=== PATIENT | male | born 1980 | race Caucasian/White ===

== ENCOUNTER 2018-05-29 17:42 | Emergency (ER) | payer MEDICAID ==
[~2018-05-29] VITALS: Ht 177.8 cm; Wt 95.5 kg
[2018-05-29 17:48] VITALS: Ht 177.8 cm; Wt 95.5 kg
[2018-05-29 18:23] LABS: BASOPHILS 0.1 % (0-2); EOSINOPHILS 0.1 % (0-7); HEMATOCRIT 48.2 % (42.0-54.0); HEMOGLOBIN 17.7 g/dL (13.5-17.5); IMMATURE GRANULOCYTES 0.4 % (0-5); LYMPHOCYTES 10.8 % (15-50); MCH 30.8 pg (26.0-34.0); MCHC 36.7 g/dL (31.0-37.0); MCV 83.8 fL (80.0-100.0); MEAN PLATELET VOLUME 10.2 fL (7.4-10.4); MONOCYTES 5.3 % (2-11); NEUTROPHILS 83.3 % (40-80); PLATELET COUNT 234 10x3/uL (130-400); RBC 5.75 10x6/uL (4.20-6.10); RDW 14.4 % (11.5-14.5); WBC 12.8 10x3/uL (4.8-10.8)
[2018-05-29 18:45] LABS: ALBUMIN 4.2 g/dL (3.4-5.0); ALKALINE PHOSPHATASE 91 U/L (46-116); ALT (SGPT) 86 U/L (10-68); BILIRUBIN - TOTAL 0.76 mg/dL (0.2-1.3); CALC OSMOLALITY 283 mosm/kg (275-300); CALCIUM 8.5 mg/dL (8.5-10.1); CARBON DIOXIDE 26.9 mmol/L (21.0-32.0); CHLORIDE - SERUM 101 mmol/L (98-107); CREATININE - SERUM 1.1 mg/dL (0.6-1.3); GLUCOSE 137 mg/dL (74-106); POTASSIUM - SERUM 3.3 mmol/L (3.5-5.1); PROTEIN - SERUM 8.6 g/dL (6.4-8.2); SODIUM 141 mmol/L (136-145); UREA NITROGEN 16 mg/dL (7-18); eGFR NON AFRICAN AMERICAN 81 mL/min (90-120)
[2018-05-29 20:06] LABS: AMYLASE - SERUM 42 U/L (25-115); LIPASE 120 U/L (73-393)
[2018-05-29 21:53] LABS: APPEARANCE CLEAR (CLEAR); BILIRUBIN NEGATIVE (NEGATIVE); COLOR YELLOW (YELLOW); GLUCOSE NEGATIVE (NEGATIVE); KETONE NEGATIVE (NEGATIVE); NITRITE NEGATIVE (NEGATIVE); PROTEIN TRACE mg/dL (NEGATIVE); SPECIFIC GRAVITY 1.025 (1.005-1.020); UROBILINOGEN NORMAL (NORMAL)
[2018-05-29] MEDS ORDERED: ZOFRAN4 MG PO (22:01)
[2018-05-29 22:20] VITALS: BP 123/87
== END 2018-05-29 22:20 | disposition home or self-care (01) ==
LOC: D.ER 17:42
PROVIDERS: Family Medicine
DX: R11.10 Vomiting, unspecified (principal); E87.6 Hypokalemia; R19.7 Diarrhea, unspecified

== ENCOUNTER 2018-06-24 07:25 | Emergency (ER) | payer MEDICAID ==
[~2018-06-24] VITALS: Ht 177.8 cm; Wt 104.5 kg
[~2018-06-24 07:25] MED LIST: ZOFRAN4 MG PO
[2018-06-24 07:31] VITALS: Ht 177.8 cm; Wt 104.5 kg
[2018-06-24] MEDS ORDERED: LISINOPRIL5 MG PO (07:32)
[2018-06-24 07:59] LABS: BASOPHILS 0.6 % (0-2); EOSINOPHILS 2.7 % (0-7); HEMATOCRIT 43.5 % (42.0-54.0); HEMOGLOBIN 16.1 g/dL (13.5-17.5); IMMATURE GRANULOCYTES 0.4 % (0-5); LYMPHOCYTES 39.3 % (15-50); MCH 30.1 pg (26.0-34.0); MCV 81.5 fL (80.0-100.0); MEAN PLATELET VOLUME 9.8 fL (7.4-10.4); MONOCYTES 5.8 % (2-11); NEUTROPHILS 51.2 % (40-80); PLATELET COUNT 229 10x3/uL (130-400); RBC 5.34 10x6/uL (4.20-6.10); RDW 13.5 % (11.5-14.5); WBC 6.7 10x3/uL (4.8-10.8)
[2018-06-24 08:10] LABS: ALBUMIN 4.1 g/dL (3.4-5.0); ALKALINE PHOSPHATASE 80 U/L (46-116); ALT (SGPT) 56 U/L (10-68); BILIRUBIN - TOTAL 0.67 mg/dL (0.2-1.3); CALC OSMOLALITY 275 mosm/kg (275-300); CALCIUM 8.3 mg/dL (8.5-10.1); CARBON DIOXIDE 27.7 mmol/L (21.0-32.0); CHLORIDE - SERUM 102 mmol/L (98-107); GLUCOSE 109 mg/dL (74-106); POTASSIUM - SERUM 3.3 mmol/L (3.5-5.1); PROTEIN - SERUM 8.3 g/dL (6.4-8.2); SODIUM 138 mmol/L (136-145); UREA NITROGEN 10 mg/dL (7-18); eGFR NON AFRICAN AMERICAN 90 mL/min (90-120)
[2018-06-24 08:32] VITALS: BP 135/90
== END 2018-06-24 08:35 | disposition home or self-care (01) ==
LOC: D.ER 07:25
PROVIDERS: Family Medicine
DX: I10 Essential (primary) hypertension (principal); E87.6 Hypokalemia